=== PATIENT | male | born 1935 | race Caucasian/White ===

== ENCOUNTER 2020-04-13 17:17 | Emergency (ER) | payer MEDICARE, OTHER, SELFPAY ==
--- NOTE | 2020-04-13 17:31 | XR_ITS ---
EXAMINATION: PELVIS AND CHEST CLINICAL INFORMATION: Status post fall COMPARISON: None TECHNIQUE: Single view pelvis, 2 views chest FINDINGS: Pelvis: There is a fracture of the superior pubic ramus on the right. No other definite pelvic fracture is seen. CHEST: The heart is enlarged. There is no evidence of CHF. The aorta is unfolded. The lungs are clear without effusions infiltrates or lung masses. Some mild left basilar atelectasis is seen. No rib fractures are seen. There is a mild compression fracture of a lower thoracic/vertebral body seen on the lateral radiograph. This appears chronic in nature. XR/XR chest 2V IMPRESSION: 1. Fracture of the superior pubic ramus on the right. No other pelvic fractures are seen on plain film radiography. 2. No acute intrathoracic disease. Cardiomegaly and old compression fracture as described above.
--- NOTE | 2020-04-13 17:31 | XR_ITS ---
EXAMINATION: PELVIS AND CHEST CLINICAL INFORMATION: Status post fall COMPARISON: None TECHNIQUE: Single view pelvis, 2 views chest FINDINGS: Pelvis: There is a fracture of the superior pubic ramus on the right. No other definite pelvic fracture is seen. CHEST: The heart is enlarged. There is no evidence of CHF. The aorta is unfolded. The lungs are clear without effusions infiltrates or lung masses. Some mild left basilar atelectasis is seen. No rib fractures are seen. There is a mild compression fracture of a lower thoracic/vertebral body seen on the lateral radiograph. This appears chronic in nature. XR/XR pelvis 1-2V IMPRESSION: 1. Fracture of the superior pubic ramus on the right. No other pelvic fractures are seen on plain film radiography. 2. No acute intrathoracic disease. Cardiomegaly and old compression fracture as described above.
--- NOTE | 2020-04-13 17:31 | ECG_ITS ---
Test Reason : FALL Blood Pressure : / mmHG Vent. Rate : 066 BPM Atrial Rate : 066 BPM P-R Int : 184 ms QRS Dur : 106 ms QT Int : 460 ms P-R-T Axes : 046 -25 060 degrees QTc Int : 482 ms Sinus rhythm with occasional Premature ventricular complexes Prolonged QT Left axis deviation Nonspecific T wave abnormality Abnormal ECG No previous ECGs available Referred By: Sanford Taylor Electronically Signed By:DEISY STEVENS MD
[2020-04-13 17:33] VITALS: BP 123/46; BP 146/84; PULSE 62; PULSE 66; RESP 18; TEMP 36.6; O2SAT 97; O2SAT 99; BMI 26.4
--- NOTE | 2020-04-13 17:36 | ED.FALL ---
HPI - Fall General Chief Complaint: Fall Stated Complaint: mechanical fall Time Seen by Provider: 04/13/20 17:25 Source: patient and EMS Mode of arrival: EMS Limitations: no limitations History of Present Illness HPI Narrative: patient no significant past medical history got up from the couch and suddenly fell down does not remember what made him fall . no loss of consciousness no chest pain no syncope patient landed on his back has a bruise the back and right forearm no head injury no loss of consciousness no chest pain or palpitation also complaining of mild pain in right hip area. Patient does not fall very often complaint: fall Onset (ago): minute(s) ( few) Fall from: standing Fall witnessed: no Place fall occurred: home Loss of consciousness: none Symptoms prior to fall: none Location of injury: back Related Data Home Medications Medication Instructions Recorded Confirmed hydrochlorothiazide 1 cap PO DAILY 04/13/20 04/13/20 latanoprost drp 04/13/20 lisinopril 1 tab PO DAILY 04/13/20 04/13/20 metoprolol tartrate 1 tab PO BID 04/13/20 04/13/20 timolol maleate drp 04/13/20 verapamil 1 tab PO DAILY 04/13/20 04/13/20 Allergies Allergy/AdvReac Type Severity Reaction Status Date / Time No Known Allergies Allergy Verified 04/13/20 17:30 Review of Systems Review of Systems: REVIEW OF SYSTEMS: Pertinent positives and negatives are stated above in the history. GEN: no fevers, chills, fatigue HEENT: no nasal congestion, sore throat, ear pain NEURO: no headache, dizziness, focal weakness PULM: no cough, shortness of breath CV: no chest pain, palpitations, LE edema ABD: no abdominal pain, nausea, vomiting, diarrhea : no dysuria, urgency, frequency SKIN: no rash ROS otherwise negative x 10 PMFSH Past Medical History Medical History (Updated 04/13/20 @ 23:36 by Sanford Taylor MD) Glaucoma Hypertension Social History Social History Alcohol intake: never Smoking Status: Never smoker Use of substances other than those prescribed or required for medical reasons: No Advance Directives: No Advance Directives Information Provided: No Physical Exam Vital Signs: Vital Signs: Vital Signs Temp Pulse Resp BP Pulse Ox 04/13/20 20:36 99.0 F 66 16 115/48 L 95 04/13/20 17:33 98 F 66 18 123/46 L 97 Body Mass Index 26.4 VITAL SIGNS: Reviewed. GENERAL: Well developed, well nourished, in no acute distress. HEAD: Normocephalic/atraumatic, EYES: PERRLA No pallor/icterus noted EARS: Ext canals without abnormality NOSE: Nares patent bilateral OROPHARYNX: Oral mucosa moist no oral lesions NECK: Supple, no adenopathy LUNGS: Normal breath sounds. No adventitious sounds or accessory muscle use CARDIOVASCULAR: Regular rate and rhythm without noted murmurs, no JVD or lower extremity edema. ABDOMEN: Soft, non-tender, non-distended with bowel sounds. No rigidity. No guarding. No palpable masses or hernias noted MUSCULOSKELETAL: mild tenderness on hip flexion at suprapubic area on the right side, deformities, EXTREMITIES: 2+ leg edema L >R SKIN: abrasion at mid back and right forearm, NEUROLOGIC: Alert and oriented x 3. Strength and sensation to light touch were grossly intact Course Course Course Narrative: patient with suprapubic fracture feels increased pain on ambulation with walker unsteady on his feet will plan to place the patient in rehab Reevaluation(s) Reevaluation #1: patient with right pubic rami fracture status post fall unable to ambulate because of pain unsteady on his feet will place him into rehab. Patient signed out to Dr. burt Time: 23:36 MDM - Fall Lab Data Attestation: I reviewed the patient's lab results. Result diagrams: 04/13/20 18:22 04/13/20 18:22 Labs: Lab Results 04/13/20 04/13/20 04/13/20 Range/Units 18:22 18:22 18:22 WBC 11.8 H (4.8-10.8) X10*3/uL RBC 4.38 L (4.60-5.80) X10*6/uL Hgb 13.7 L (14.0-18.0) g/dl Hct 41.4 L (42-52) % MCV 94.5 (80-98) fL MCH 31.3 (27.0-33.0) pg MCHC 33.1 (31.0-36.0) g/dl RDW 13.3 (11.0-16.0) % Plt Count 126 L (160-400) X10*3/uL MPV 11.0 (9.4-12.4) fL Immature Gran % (Auto) 1.4 H (0.0-0.4) % Neut % (Auto) 81.8 H (45-73) % Lymph % (Auto) 7.6 L (20-40) % Bates % (Auto) 8.0 (2-11) % Eos % (Auto) 0.8 (0-4) % Baso % (Auto) 0.4 (0-2) % Lymph # (Auto) 0.9 L (1.2-4.9) X10*3/uL Bates # (Auto) 0.9 (0.1-1.2) X10*3/uL Eos # (Auto) 0.1 (0.0-0.4) X10*3/uL Baso # (Auto) 0.1 (0.0-0.2) X10*3/uL Abs Immat Gran (auto) 0.16 H (0.00-0.03) X10*3/uL Absolute Neuts (auto) 9.7 H (2.0-8.3) X10*3/uL Absolute Nucleated RBC 0.000 (0.0-0.012) X10*3/uL Nucleated RBC % (auto) 0.0 (0.0-0.2) /100WBC Smear Tech's Comments VERIFIED Sodium 143 (135-145) mmol/L Potassium 4.4 (3.3-5.1) mmol/l Chloride 107 (96-108) mmol/L Carbon Dioxide 29 (22-29) mmol/L Anion Gap 11 L (12-20) BUN 19 H (9-16) mg/dL Creatinine 0.98 (0.5-1.4) mg/dL Estim Creat Clear Calc 57.1 Estimated GFR > 60 Random Glucose 105 (60-115) mg/dL Calcium 7.7 L (8.4-10.2) mg/dL Troponin I High Sens 11.9 (<3.5-35.0) ng/L B-Natriuretic Peptide (<100) pg/mL Coronavirus (PCR) (Negative) 04/13/20 04/13/20 Range/Units 18:22 20:12 WBC (4.8-10.8) X10*3/uL RBC (4.60-5.80) X10*6/uL Hgb (14.0-18.0) g/dl Hct (42-52) % MCV (80-98) fL MCH (27.0-33.0) pg MCHC (31.0-36.0) g/dl RDW (11.0-16.0) % Plt Count (160-400) X10*3/uL MPV (9.4-12.4) fL Immature Gran % (Auto) (0.0-0.4) % Neut % (Auto) (45-73) % Lymph % (Auto) (20-40) % Bates % (Auto) (2-11) % Eos % (Auto) (0-4) % Baso % (Auto) (0-2) % Lymph # (Auto) (1.2-4.9) X10*3/uL Bates # (Auto) (0.1-1.2) X10*3/uL Eos # (Auto) (0.0-0.4) X10*3/uL Baso # (Auto) (0.0-0.2) X10*3/uL Abs Immat Gran (auto) (0.00-0.03) X10*3/uL Absolute Neuts (auto) (2.0-8.3) X10*3/uL Absolute Nucleated RBC (0.0-0.012) X10*3/uL Nucleated RBC % (auto) (0.0-0.2) /100WBC Smear Tech's Comments Sodium (135-145) mmol/L Potassium (3.3-5.1) mmol/l Chloride (96-108) mmol/L Carbon Dioxide (22-29) mmol/L Anion Gap (12-20) BUN (9-16) mg/dL Creatinine (0.5-1.4) mg/dL Estim Creat Clear Calc Estimated GFR Random Glucose (60-115) mg/dL Calcium (8.4-10.2) mg/dL Troponin I High Sens (<3.5-35.0) ng/L B-Natriuretic Peptide 856 H (<100) pg/mL Coronavirus (PCR) NEGATIVE (Negative) ECG Data Attestation: I personally reviewed and interpreted this ECG as follows: Interpretation: sinus rhythm with heart rate of 66 occasional PVCs unifocal QT interval slightly prolonged to [address] T wave changes normal axis no acute ischemic Discharge Plan Discharge Clinical Impression: Fracture of pubic ramus Qualifiers: Encounter type: initial encounter Fracture type: closed Laterality: right Qualified Code(s): S32.591A - Other specified fracture of right pubis, initial encounter for closed fracture Patient Disposition: [facility] Prescriptions: No Action latanoprost 0.005 % drops RF: 0 metoprolol tartrate 100 mg tablet 1 tab PO BID RF: 0 verapamil 180 mg tablet extended release 1 tab PO DAILY RF: 0 hydrochlorothiazide 12.5 mg capsule 1 cap PO DAILY RF: 0 timolol maleate 0.5 % drops RF: 0 lisinopril 40 mg tablet 1 tab PO DAILY RF: 0
[2020-04-13 18:29] LABS: Hematocrit 41.4 % (42-52); Hemoglobin 13.7 g/dl (14.0-18.0); MANUAL DIFF FLAG SCAN; Mean Corpuscular HGB Conc 33.1 g/dl (31.0-36.0); PLT CLUMP 1; SCAN SMEAR FLAG 1
[2020-04-13 18:31] LABS: Basophils Absolute Auto 0.1 X10*3/uL (0.0-0.2); Basophils Percent Auto 0.4 % (0-2); Eosinophils Absolute Auto 0.1 X10*3/uL (0.0-0.4); Eosinophils Percent Auto 0.8 % (0-4); Imm Gran Abs Auto 0.16 X10*3/uL (0.00-0.03); Imm Gran Pct Auto 1.4 % (0.0-0.4); Lymphocytes Absolute Auto 0.9 X10*3/uL (1.2-4.9); Lymphocytes Percent Auto 7.6 % (20-40); Mean Corpuscular Hemoglobin 31.3 pg (27.0-33.0); Mean Corpuscular Volume 94.5 fL (80-98); Monocytes Absolute Auto 0.9 X10*3/uL (0.1-1.2); Neutrophils Absolute Auto 9.7 X10*3/uL (2.0-8.3); Neutrophils Percent Auto 81.8 % (45-73); Platelet Count 126 X10*3/uL (160-400); Red Blood Count 4.38 X10*6/uL (4.60-5.80); Red Cell Distribution Width 13.3 % (11.0-16.0); White Blood Count 11.8 X10*3/uL (4.8-10.8)
[2020-04-13 18:46] LABS: SLIDE REVIEW VERIFIED
[2020-04-13 18:51] LABS: Anion Gap 11 (12-20); Blood Urea Nitrogen 19 mg/dL (9-16); Calcium 7.7 mg/dL (8.4-10.2); Carbon Dioxide 29 mmol/L (22-29); Chloride 107 mmol/L (96-108); Creatinine Clr Calc Pharmacy 57.1; Estimated Glomerular Filt Rate > 60; Glucose Random 105 mg/dL (60-115); Potassium 4.4 mmol/l (3.3-5.1); Sodium 143 mmol/L (135-145)
[2020-04-13 18:59] LABS: B Type Natriuretic Peptide 856 pg/mL (<100); Troponin-I High Sensitivity 11.9 ng/L (<3.5-35.0)
[2020-04-13 20:36] VITALS: BP 115/48; PULSE 66; RESP 16; TEMP 37.2; O2SAT 95
[2020-04-13 21:12] LABS: SARS COV2 PCR INHOUSE NEGATIVE (Negative)
--- NOTE | 2020-04-13 21:39 | PC.NURSE ---
PT TRANSFERRED OVER FROM ROOM 4, PT TO SPEAK WITH CASE MANAGEMENT FOR SHORT TERM REHAB. PT NEEDS HIS MEDICATION LIST PUT IN PHARMACY IN THE MORNING AND SIGNED OFF BY MD. MO REPORTS THAT DAUGHTER CAN GET A LIST IN THE MORNING.
[2020-04-14] VITALS (8 sets, daily range): BP systolic 103–139; BP diastolic 44–62; PULSE 66–77; RESP 16–18; TEMP 37.1; O2SAT 91–96
[2020-04-14] MEDS: Acetaminophen 325 MG TABLET 650 MG PO (00:42)
--- NOTE | 2020-04-14 01:56 | PC.NURSE ---
pt able to fall asleep following tylenol.
--- NOTE | 2020-04-14 05:31 | PC.NURSE ---
pt awake and alert, in no distress and denies any hx of copd or emphysema. SPO2 90% on room air, good waveform. skin warm and dry on left hand where spo2 sensor is placed.
--- NOTE | 2020-04-14 05:39 | PC.NURSE ---
changes spo2 sensor, SPO@ still 89% to 94%.
[2020-04-14] MEDS: Furosemide 20 MG TABLET PO (05:55)
--- NOTE | 2020-04-14 06:13 | PC.NURSE ---
pt placed on 1 management engineer oxygen via NC, per request of md. SPO2 improved to 95%
--- NOTE | 2020-04-14 07:55 | PC.NURSE ---
With physical therapy at this time for evaluation
--- NOTE | 2020-04-14 08:32 | XR_ITS ---
EXAMINATION: XR CHEST CLINICAL INFORMATION: Status post fall. COMPARISON: Chest 04/13/2020 TECHNIQUE: Frontal view of the chest was obtained. FINDINGS: The lungs are well-expanded and clear. The heart size and pulmonary vascularity is normal. No gross bony abnormality seen. XR/XR chest 1V IMPRESSION: Unremarkable chest exam. The heart size appears normal on this exam. There is a question of compression fracture, a thoracic spine should be obtained.
--- NOTE | 2020-04-14 08:56 | PC.NURSE ---
Spoke with Daughter Geovanna and updated (with permission of pt) Plan this morning for repeat BNP and remove pt off 02, if not admission after BNP resulted, short term rehab remains plan. Daughter prefers [facility] CM team aware.
[2020-04-14 09:04] LABS: Imm Gran Abs Auto 0.03 X10*3/uL (0.00-0.03); Imm Gran Pct Auto 0.3 % (0.0-0.4); Red Cell Distribution Width 13.2 % (11.0-16.0)
[2020-04-14 09:06] LABS: Basophils Absolute Auto 0.1 X10*3/uL (0.0-0.2); Basophils Percent Auto 0.7 % (0-2); Eosinophils Absolute Auto 0.2 X10*3/uL (0.0-0.4); Eosinophils Percent Auto 1.9 % (0-4); Hemoglobin 13.3 g/dl (14.0-18.0); Lymphocytes Percent Auto 9.7 % (20-40); Mean Corpuscular HGB Conc 34.1 g/dl (31.0-36.0); Mean Corpuscular Hemoglobin 31.2 pg (27.0-33.0); Mean Corpuscular Volume 91.5 fL (80-98); Mean Platelet Volume 11.1 fL (9.4-12.4); Monocytes Absolute Auto 1.1 X10*3/uL (0.1-1.2); Monocytes Percent Auto 10.5 % (2-11); Neutrophils Absolute Auto 8.2 X10*3/uL (2.0-8.3); Neutrophils Percent Auto 76.9 % (45-73); Platelet Count 110 X10*3/uL (160-400); Red Blood Count 4.26 X10*6/uL (4.60-5.80); White Blood Count 10.6 X10*3/uL (4.8-10.8)
[2020-04-14 09:08] LABS: MANUAL DIFF FLAG NO
[2020-04-14 09:28] LABS: Anion Gap 12 (12-20); Blood Urea Nitrogen 13 mg/dL (9-16); Calcium 7.6 mg/dL (8.4-10.2); Carbon Dioxide 25 mmol/L (22-29); Chloride 106 mmol/L (96-108); Estimated Glomerular Filt Rate > 60; Glucose Random 131 mg/dL (60-115); Potassium 3.7 mmol/l (3.3-5.1); Sodium 139 mmol/L (135-145)
[2020-04-14 09:30] LABS: B Type Natriuretic Peptide 1528 pg/mL (<100)
[2020-04-14] MEDS: Docusate Sodium 100 MG/10 ML LIQUID 50 MG PO (09:58)
[2020-04-14] MEDS: lisinopriL 40 MG TABLET PO (09:59)
[2020-04-14] MEDS: Metoprolol Tartrate 100 MG TABLET PO (09:59)
[2020-04-14] MEDS: VerapamiL HCL SR 180 MG TABLET.ER PO (10:00)
[2020-04-14] MEDS: hydroCHLOROthiazide 12.5 MG TABLET PO (10:00)
--- NOTE | 2020-04-14 10:03 | MHC.CM.ED ---
Received case management consult overnight. Patient came to ER due to fall. Found to have pubic ramus fracture. Physical therapy eval completed. Short term rehab is recommended. Received notification from [facility] that daughter is requesting referral to [facility]. Referral made via [employer]. [facility] to offer. Spoke with patient's daughter, Geovanna via telephone at [phone]. Geovanna states she's an agency nurse that has worked in most of the facilities in the area. She doesn't trust any facility but [facility]. She wants to know when they will have a bed available and if it's later in the week, can patient come home and then go. T/W is reaching out to [facility] liaison to answer these questions. Continue to monitor for d/c needs.
--- NOTE | 2020-04-14 11:06 | MHC.CM.ED ---
Spoke with Vivian at [facility]. They are able to offer a bed to patient today. They will need a 2nd negative covid test. Rapid covid ordered. Spoke with patient's daughter, Geovanna. Explained patient will be leaving for [facility] at 2pm. [facility] booked. [facility]. Patient, Sarah Austin DESIGN ENGINEERING MANAGER and Lauren RN aware. Continue to monitor for d/c needs.
--- NOTE | 2020-04-14 11:27 | PC.NURSE ---
verified with ileana that the patient already got am dose of colace as well as hydrochlorothiazide even though the MAR looks as if it wasnt given.
--- NOTE | 2020-04-14 11:34 | PC.NURSE ---
patient a&ox3, repeat covid swab performed, patient spoke with daughter on phone as well as , patient requesting eye drops will notify provider
[2020-04-14 12:43] LABS: SARS COV2 PCR INHOUSE NEGATIVE (Negative)
--- NOTE | 2020-04-14 13:42 | PC.NURSE ---
report called to klaus stewart
--- NOTE | 2020-04-14 13:51 | PC.NURSE ---
[facility] worker (saige- contact info in a note a few days ago by this nurse) just called asking for update on patient and if there has been any word on a cbat bed, dcf worker stated she will be in contact with social work to see if she still meets the level of care needed.
[2020-04-14] MEDS: Dorzolamide/Timolo 2.23%/0.68% 10 ML DRBTL 1 DROP EYE-BOTH (13:56)
--- NOTE | 2020-04-14 13:58 | PC.NURSE ---
patient refusing latanoprost at this time
== END 2020-04-14 14:17 | disposition skilled nursing facility (03) ==
PROVIDERS: Nurse Practitioner Family; Student in an Organized Health Care Education/Training Program; Emergency Provider Internal Medicine; PCP Internal Medicine
DX: S32.591A Other specified fracture of right pubis, initial encounter for closed fracture (principal); M25.551 Pain in right hip; M54.5 Low back pain; M79.601 Pain in right arm; W01.0XXA Fall on same level from slipping, tripping and stumbling without subsequent striking against object, initial encounter; Y93.01 Activity, walking, marching and hiking; Y92.009 Unspecified place in unspecified non-institutional (private) residence as the place of occurrence of the external cause; Y99.9 Unspecified external cause status; Z20.828 Contact with and (suspected) exposure to other viral communicable diseases; Z79.899 Other long term (current) drug therapy
CPT/HCPCS: 36415; 71045; 71046; 72170; 80048; 82550; 83880; 84484; 85025; 93005; 97161; 99284; 99285; U0003

== ENCOUNTER 2022-02-05 19:23 | Emergency (ER) | payer MEDICARE, OTHER, SELFPAY ==
--- NOTE | ~2022-02-05 | XR_ITS ---
EXAMINATION: XR CHEST CLINICAL INFORMATION: Covid positive COMPARISON: Chest x-ray 04/14/2020 TECHNIQUE: Frontal view of the chest was obtained. FINDINGS: Minimal linear streaky bibasilar opacities likely mild subsegmental atelectasis. No airspace consolidation. No pleural effusion or pneumothorax. Normal cardiomediastinal silhouette and pulmonary vascularity. No evidence of pulmonary edema. No acute osseous injury. XR/XR chest 1V IMPRESSION: 1. Mild linear basilar opacities, likely mild subsegmental atelectasis. No definite airspace consolidation or effusions.
--- NOTE | ~2022-02-05 | CT_ITS ---
EXAMINATION: NONCONTRAST HEAD CT NONCONTRAST CERVICAL SPINE CT INDICATION INFORMATION: Fall with head and neck pain COMPARISON: None TECHNIQUE: Separate noncontrast CT examinations of the head and cervical spine were performed. Coronal and sagittal images were created for each examination at the technologist workstation. This CT examination was performed using dose optimization techniques as appropriate, variously including the following: *Automated exposure control *Adjustment of mA and/or kV according to patient size (this includes techniques or standardized protocols for targeted exams where dose is matched to indication/reason for exam; i.e. extremities or head) *Use of iterative reconstruction technique DLP: 1502 mGy-cm FINDINGS: HEAD: No intra or extra-axial fluid collection, hemorrhage, or mass. No ventriculomegaly. No midline shift or herniation. Basal cisterns are patent. Ingram-white matter differentiation is maintained. No territorial encephalomalacia. Proportional prominence of the ventricles and sulcal spaces is consistent with moderate volume loss. Patchy periventricular and deep white matter hypoattenuation is consistent with mild small vessel ischemic changes. No calvarial fracture or soft tissue abnormality. Mild mucosal thickening in a few ethmoid air cells. Mastoid air cells normally aerated. CERVICAL SPINE: Alignment: Straightening of the normal cervical lordosis. Trace grade 1 anterolisthesis at C7-T1. No additional subluxation. Vertebra: No acute fracture. No prevertebral soft tissue swelling. Degenerative disc disease: Advanced multilevel cervical spondylosis at C3-C4, C4-C5, C5-C6, and C6-C7 with pronounced disc height loss, endplate sclerosis, and endplate proliferative change. Multilevel facet arthrosis with left-sided predominance. Other findings: No cervical lymphadenopathy or soft tissue mass. Visualized salivary glands and thyroid gland grossly unremarkable. Visualized lung apices clear. CT/CT cervical spine wo con IMPRESSION: 1. No intracranial hemorrhage or calvarial fracture. 2. No traumatic subluxation or acute cervical spine fracture.
[2022-02-05 19:36] VITALS: BP 106/74; PULSE 68; O2SAT 94
[2022-02-05 19:40] VITALS: BP 92/41; PULSE 63; RESP 18; TEMP 37.1; O2SAT 95; BMI 21.9
[2022-02-05 20:02] VITALS: BP 89/41
[2022-02-05 20:03] VITALS: BP 99/48
--- NOTE | 2022-02-05 20:03 | PC.NURSE ---
left lower leg ankle and pedal pitting edema. pt states he is given his meds but has no idea what for or what they are. poor historian. soft bp 89/41 left arm 99/48 right arm.
[2022-02-05 20:13] LABS: COVID-19 Test Positive (Negative)
[2022-02-05] MEDS: 0.9 % Sodium Chloride 1,000 ML 999 ML IVCONT (20:22)
[2022-02-05 20:27] LABS: MANUAL DIFF FLAG NO
[2022-02-05 20:30] LABS: Basophils Percent Auto 0.4 % (0-2); Eosinophils Absolute Auto 0.1 X10*3/uL (0.0-0.4); Eosinophils Percent Auto 1.4 % (0-4); Hematocrit 41.8 % (42.0-52.0); Imm Gran Abs Auto 0.02 X10*3/uL (0.00-0.03); Imm Gran Pct Auto 0.4 % (0.0-0.4); Lymphocytes Absolute Auto 1.1 X10*3/uL (1.2-4.9); Lymphocytes Percent Auto 21.7 % (20-40); Mean Corpuscular HGB Conc 33.5 g/dl (31.0-36.0); Mean Corpuscular Hemoglobin 29.3 pg (27.0-33.0); Mean Corpuscular Volume 87.4 fL (80.0-98.0); Mean Platelet Volume 11.3 fL (9.4-12.4); Monocytes Absolute Auto 0.9 X10*3/uL (0.1-1.2); Monocytes Percent Auto 18.3 % (2-11); Neutrophils Absolute Auto 2.9 x10*3/uL (2.0-8.3); Neutrophils Percent Auto 57.8 % (45-73); Platelet Count 101 X10*3/uL (160-400); Red Blood Count 4.78 X10*6/uL (4.60-5.80); Red Cell Distribution Width 13.3 % (11.0-16.0)
[2022-02-05 20:37] LABS: Lactic Acid 1.3 mmol/L (0.5-2.0)
[2022-02-05 20:42] LABS: Alanine Aminotransferase 27 U/L (0-40); Albumin Level 3.5 g/dL (3.5-5.0); Alkaline Phosphatase 59 U/L (39-117); Anion Gap 16 (12-20); Aspartate Amino Transferase 45 U/L (5-37); Bilirubin Direct 0.4 mg/dL (0.0-0.5); Bilirubin Total 1.1 mg/dL (0.0-1.0); Blood Urea Nitrogen 41 mg/dL (9-16); Calcium 8.3 mg/dL (8.4-10.2); Carbon Dioxide 30 mmol/L (22-29); Chloride 101 mmol/L (96-108); Creatinine Clr Calc Pharmacy 36.1; Estimated Glomerular Filt Rate 46; Ethanol < 10 mg/dL; Glucose Random 105 mg/dL (60-115); Magnesium 2.1 mg/dL (1.6-2.6); Potassium 4.2 mmol/L (3.3-5.1); Sodium 143 mmol/L (135-145); Total Protein 6.3 g/dL (6.5-8.0)
--- NOTE | 2022-02-05 20:42 | PHA.MEDREC ---
Pharmacy Consult ? Medication Reconciliation Pharmacy has completed the medication reconciliation. Patient has altered mental status. [facility], however, at this time they are closed. Med rec done by using [employer] [facility].
--- NOTE | 2022-02-05 21:16 | MHC.CM.ED ---
Addendum entered by Vicenta Dinh 02/05/22 21:37: Correct telephone number for Geovanna Maria ([phone]). Original Note: Medical work-up pending. Dr. Newberry discussed patient and his (who is in ED also) with CM. Pt was diagnosed with Covid on 01/31. Pt was found today with AMS and naked in home. Pt appears to have fallen, as there are bruises on his face and he has scleral total reddness noted. Pt is still being medically worked up. Will either be admitted or will be a CM hold, as he cannot go home. There is no one to care for his. CM spoke with Geovanna Maria (daughter/HCP/POA) ([phone]). Pt lives with his . Pt son in law , Silviano Antoine cares for both the patient and his during the day and the family private pays for 2 [employer] in the evenings and on weekends. Pt uses a walker. Pt is normally A&Ox4. Pt has been having increased difficulties with ADL's and Geovanna tells CM that her may need to start helping him to shower. Daughter aware that if not admitted, pt may need STR, but that may be problematic, as pt is Covid positive and many facilities need patients to be covid recovered before admission. Geovanna aware that her father will not be going home, as he has no one to care for him. Son in law, Silviano Antoine also has covid, as does patient's grandson. CM will follow for d/c planning.
--- NOTE | 2022-02-05 21:17 | ED.GENADULT ---
HPI - General Adult General Chief complaint: General Medical Stated complaint: fall covid + and eye problem Time Seen by Provider: 02/05/22 19:40 Source: EMS Mode of arrival: EMS Limitations: altered mental status History of Present Illness HPI narrative: Patient was in the emergency room via EMS for altered mental status. Patient tested positive for COVID-19 5 days ago. Patient is very confused and is unable to give any significant history. I spoke with the patient's daughter, states that the patient has been gradually become more confused since the last 5 days. Patient does not have history of dementia. This afternoon, when patient's daughter went to provide him with food and medications, the patient was running around the house naked and screaming. According to the patient's daughter, this is not a normal behavior for the patient. Patient denies any symptoms. Besides being confused and having COVID, the patient has a new subconjunctival hemorrhage. Patient states that he does note if it fell, denies any pain. The daughter states that this morning the patient's eye was within normal limits, when they found him this afternoon, he had the hemorrhage in his eye. Related Data Home Medications Medication Instructions Recorded Confirmed hydrochlorothiazide 12.5 mg capsule 1 cap PO DAILY 04/13/20 02/05/22 latanoprost 0.005 % eye drops 1 drp ophthalmic (eye) BEDTIME 04/13/20 02/05/22 lisinopril 40 mg tablet 1 tab PO DAILY 04/13/20 02/05/22 metoprolol tartrate 100 mg tablet 1 tab PO BID 04/13/20 02/05/22 verapamil 180 mg tablet,extended 1 tab PO DAILY 04/13/20 02/05/22 release brimonidine 0.2 % eye drops 1 drp ophthalmic (eye) TID 04/14/20 02/05/22 dorzolamide 22.3 mg-timolol 6.8 1 drp ophthalmic (eye) BID 04/14/20 02/05/22 mg/mL eye drops (Cosopt) nirmatrelvir 300 mg (150 mg 3 tab PO DAILY 02/05/22 02/05/22 x2)-ritonavir 100 mg tablet,dose pack(EUA) (Paxlovid) Previous Rx's Medication Instructions Recorded furosemide 20 mg tablet 20 mg PO QAM #10 tabs 04/14/20 Allergies Allergy/AdvReac Type Severity Reaction Status Date / Time No Known Allergies Allergy Verified 04/13/20 17:30 Review of Systems Review of Systems: Yes Unobtainable due to mental condition [facility] Past Medical History Medical History (Updated 02/05/22 @ 22:48 by Leonora Newberry MD) Aortic stenosis CHF (congestive heart failure) Glaucoma Hypertension Social History Social History Alcohol intake: never Advance Directives: No Advance Directives Information Provided: No Physical Exam ED Vital Signs: Vital Signs - 24 hr 02/05/22 19:40 02/05/22 20:02 02/05/22 20:03 Temperature 98.8 F Pulse Rate 63 Respiratory Rate 18 Blood Pressure 92/41 L 89/41 L 99/48 L Pulse Oximetry 95 Oxygen Delivery Method Room Air BMI result Body Mass Index 21.9 Const Other: Appearance: Alert. Oriented X2. No acute distress. Eyes: After within normal limits, the right pupil is oval, unresponsive to light, there is a significant subconjunctival hemorrhage, the globe is not ruptured, there is ecchymosis on the inferior aspect of the orbit. Seems that patient can move his eyes, not complaining of pain, patient has trouble following instructions due to altered mental status. Visual acuity test was attempted, patient kept saying I can not see anything, patient unable to follow directions. However, when light was being shined into his eyes, patient states that he was able to see the light bilaterally. Eye pressure bilaterally between 18 and 23 mmHg ENT: Pharynx normal. Neck: Normal inspection. Neck supple. No lymph nodes noted. No crepitus CVS: Normal heart rate and rhythm. Pulses normal. Normal S1 and S2 Respiratory: No respiratory distress. Breath sounds normal. No Wheezing. No rales Abdomen: Soft and nontender. No rigidity. No distention. Skin: Skin warm and dry. Ecchymosis in the face Extremities: +3 pitting edema bilaterally, more on the left leg. No pain to palpation in the calf, no erythema. No Lacerations. No Rash Neuro: Oriented X 2. No motor deficit. No sensory deficit. Moving all extremities. No slurred speech. CN 2 through 12 grossly intact Psych: calm, cooperative, normal affect Course Course Course Narrative: White blood cell count within normal limits, coagulation tests normal, very mild HANNA, normal creatinine is 1.4, patient is at 1.45 and is receiving fluids that were started by EMS Patient tested positive for COVID-19 I discussed the patient with Dr. Muse, topical erythromycin was recommended. Head CT is pending. 22:47, head CT does not show any acute abnormalities. Urinalysis is negative for UTI. Case management has been made aware. Patient will need a physical therapy evaluation tomorrow, erythromycin eye ointment to be continued . Patient will need to follow up with Dr. Muse Physician observation started at 23:16 Sign-out given to Medical Decision Making Lab Data Result diagrams: 02/05/22 20:19 02/05/22 20:19 Labs: Lab Results 02/05/22 02/05/22 02/05/22 Range/Units 19:55 20:19 20:19 WBC 5.0 (4.8-10.8) X10*3/uL RBC 4.78 (4.60-5.80) X10*6/uL Hgb 14.0 (14.0-18.0) g/dl Hct 41.8 L (42.0-52.0) % MCV 87.4 (80.0-98.0) fL MCH 29.3 (27.0-33.0) pg MCHC 33.5 (31.0-36.0) g/dl RDW 13.3 (11.0-16.0) % Plt Count 101 L (160-400) X10*3/uL MPV 11.3 (9.4-12.4) fL Immature Gran % (Auto) 0.4 (0.0-0.4) % Neut % (Auto) 57.8 (45-73) % Lymph % (Auto) 21.7 (20-40) % [place] % (Auto) 18.3 H (2-11) % Eos % (Auto) 1.4 (0-4) % Baso % (Auto) 0.4 (0-2) % Lymph # (Auto) 1.1 L (1.2-4.9) X10*3/uL [place] # (Auto) 0.9 (0.1-1.2) X10*3/uL Eos # (Auto) 0.1 (0.0-0.4) X10*3/uL Baso # (Auto) 0.0 (0.0-0.2) X10*3/uL Abs Immat Gran (auto) 0.02 (0.00-0.03) X10*3/uL Absolute Neuts (auto) 2.9 (2.0-8.3) x10*3/uL Absolute Nucleated RBC 0.000 (0.0-0.012) X10*3/uL Nucleated RBC % (auto) 0.0 (0.0-0.2) /100WBC PT (10.0-13.1) SEC INR (0.9-1.1) APTT (26.0-36.4) SEC Sodium 143 (135-145) mmol/L Potassium 4.2 (3.3-5.1) mmol/L Chloride 101 (96-108) mmol/L Carbon Dioxide 30 H (22-29) mmol/L Anion Gap 16 (12-20) BUN 41 H (9-16) mg/dL Creatinine 1.45 H (0.5-1.4) mg/dL Estim Creat Clear Calc 36.1 Estimated GFR 46 Random Glucose 105 (60-115) mg/dL Lactic Acid (0.5-2.0) mmol/L Calcium 8.3 L D (8.4-10.2) mg/dL Magnesium 2.1 (1.6-2.6) mg/dL Total Bilirubin 1.1 H (0.0-1.0) mg/dL Direct Bilirubin 0.4 (0.0-0.5) mg/dL AST 45 H (5-37) U/L ALT 27 (0-40) U/L Alkaline Phosphatase 59 (39-117) U/L Total Protein 6.3 L (6.5-8.0) g/dL Albumin 3.5 (3.5-5.0) g/dL Urine Color Urine Appearance Urine pH (5.0-8.0) Ur Specific [place] (1.005-1.025) Urine Protein (Neg-Trace) mg/dL Urine Glucose (UA) (Negative) mg/dL Urine Ketones (Negative) mg/dL Urine Blood (Negative) Urine Nitrite (Negative) Ur Leukocyte Esterase (Negative) Ethyl Alcohol < 10 mg/dL COVID-19 (CECILE) Positive A (Negative) COVID-19 Clin Com See Note 02/05/22 02/05/22 02/05/22 Range/Units 20:19 21:25 21:52 WBC (4.8-10.8) X10*3/uL RBC (4.60-5.80) X10*6/uL Hgb (14.0-18.0) g/dl Hct (42.0-52.0) % MCV (80.0-98.0) fL MCH (27.0-33.0) pg MCHC (31.0-36.0) g/dl RDW (11.0-16.0) % Plt Count (160-400) X10*3/uL MPV (9.4-12.4) fL Immature Gran % (Auto) (0.0-0.4) % Neut % (Auto) (45-73) % Lymph % (Auto) (20-40) % [place] % (Auto) (2-11) % Eos % (Auto) (0-4) % Baso % (Auto) (0-2) % Lymph # (Auto) (1.2-4.9) X10*3/uL [place] # (Auto) (0.1-1.2) X10*3/uL Eos # (Auto) (0.0-0.4) X10*3/uL Baso # (Auto) (0.0-0.2) X10*3/uL Abs Immat Gran (auto) (0.00-0.03) X10*3/uL Absolute Neuts (auto) (2.0-8.3) x10*3/uL Absolute Nucleated RBC (0.0-0.012) X10*3/uL Nucleated RBC % (auto) (0.0-0.2) /100WBC PT 12.1 (10.0-13.1) SEC INR 1.1 (0.9-1.1) APTT 29.1 (26.0-36.4) SEC Sodium (135-145) mmol/L Potassium (3.3-5.1) mmol/L Chloride (96-108) mmol/L Carbon Dioxide (22-29) mmol/L Anion Gap (12-20) BUN (9-16) mg/dL Creatinine (0.5-1.4) mg/dL Estim Creat Clear Calc Estimated GFR Random Glucose (60-115) mg/dL Lactic Acid 1.3 (0.5-2.0) mmol/L Calcium (8.4-10.2) mg/dL Magnesium (1.6-2.6) mg/dL Total Bilirubin (0.0-1.0) mg/dL Direct Bilirubin (0.0-0.5) mg/dL AST (5-37) U/L ALT (0-40) U/L Alkaline Phosphatase (39-117) U/L Total Protein (6.5-8.0) g/dL Albumin (3.5-5.0) g/dL Urine Color Yellow Urine Appearance Clear Urine pH 5.5 (5.0-8.0) Ur Specific [place] 1.015 (1.005-1.025) Urine Protein Negative (Neg-Trace) mg/dL Urine Glucose (UA) Negative (Negative) mg/dL Urine Ketones Negative (Negative) mg/dL Urine Blood Negative (Negative) Urine Nitrite Negative (Negative) Ur Leukocyte Esterase Negative (Negative) Ethyl Alcohol mg/dL COVID-19 (CECILE) (Negative) COVID-19 Clin Com Imaging Data Chest x-ray: Radiologist's impression: FINDINGS: Minimal linear streaky bibasilar opacities likely mild subsegmental atelectasis. No airspace consolidation. No pleural effusion or pneumothorax. Normal cardiomediastinal silhouette and pulmonary vascularity. No evidence of pulmonary edema. No acute osseous injury. XR/XR chest 1V IMPRESSION: ? 1. Mild linear basilar opacities, likely mild subsegmental atelectasis. No definite airspace consolidation or effusions. ? Head and cervical spine CT: Radiologist's impression: FINDINGS: HEAD: No intra or extra-axial fluid collection, hemorrhage, or mass. No ventriculomegaly. No midline shift or herniation. Basal cisterns are patent. Ingram-white matter differentiation is maintained. No territorial encephalomalacia. ?Proportional prominence of the ventricles and sulcal spaces is consistent with moderate volume loss. Patchy periventricular and deep white matter hypoattenuation is consistent with mild small vessel ischemic changes. No calvarial fracture or soft tissue abnormality. Mild mucosal thickening in a few ethmoid air cells. Mastoid air cells normally aerated. CERVICAL SPINE: Alignment: Straightening of the normal cervical lordosis. Trace grade 1 anterolisthesis at C7-T1. No additional subluxation. Vertebra: No acute fracture. No prevertebral soft tissue swelling. Degenerative disc disease: Advanced multilevel cervical spondylosis at C3-C4, C4-C5, C5-C6, and C6-C7 with pronounced disc height loss, endplate sclerosis, and endplate proliferative change. Multilevel facet arthrosis with left-sided predominance. Other findings: No cervical lymphadenopathy or soft tissue mass. Visualized salivary glands and thyroid gland grossly unremarkable. Visualized lung apices clear. CT/CT cervical spine wo con IMPRESSION: ? 1. No intracranial hemorrhage or calvarial fracture. 2. No traumatic subluxation or acute cervical spine fracture. Discharge Plan Discharge Clinical Impression: COVID-19, Altered mental status, Subconjunctival hemorrhage of right eye Patient Disposition: Still a Patient Prescriptions: No [facility] latanoprost 0.005 % drops 1 drp ophthalmic (eye) BEDTIME Rx Instructions: one drop each eye metoprolol tartrate 100 mg tablet 1 tab PO BID verapamil 180 mg tablet extended release 1 tab PO DAILY hydrochlorothiazide 12.5 mg capsule 1 cap PO DAILY lisinopril 40 mg tablet 1 tab PO DAILY furosemide 20 mg tablet 20 mg PO QAM Qty: 10 0RF dorzolamide-timolol [Cosopt] 22.3-6.8 mg/mL Drops 1 drp OPHTHALMIC (EYE) BID brimonidine 0.2 % Drops 1 drp OPHTHALMIC (EYE) TID Paxlovid (EUA) 300 mg (150 mg x 2)-100 mg tablets,dose pack 3 tab PO DAILY
[2022-02-05 21:41] LABS: INTERNATIONAL NORM RATIO 1.1 (0.9-1.1); Prothrombin Time 12.1 SEC (10.0-13.1)
[2022-02-05 21:43] LABS: Partial Thromboplastin Time 29.1 SEC (26.0-36.4)
[2022-02-05 22:58] LABS: Appearance Urine Clear; Color Urine Yellow; Glucose Urine UA Negative (Negative); Leukocyte Esterase Urine Negative (Negative); Nitrite Urine Negative (Negative); PH 5.5 (5.0-8.0); Specific Gravity - Urine 1.015 (1.005-1.025); Urine Blood Negative (Negative); Urine Ketones Negative (Negative); Urine Protein Negative (Neg-Trace)
--- NOTE | 2022-02-05 22:59 | PC.NURSE ---
PATIENT WAS INC OF URINE ,CARE GIVEN LINEN CHANGE .
[2022-02-05] MEDS: Erythromycin Base 0.5% Oph Oin 1 GM TUBE 1 CM EYE-RIGHT (23:19)
[2022-02-05 23:31] LABS: Amphetamine Screen Urine Not Detected (Not Detect); Barbiturates, Urine Not Detected (Not Detect); Benzodiazepines Screen Urine Not Detected (Not Detect); Cannabinoid Screen Urine Not Detected (Not Detect); Cocaine Screen Urine Not Detected (Not Detect); Fentanyl, urine Not Detected (Not Detect); Opiate Screen Urine Not Detected (Not Detect); Phencyclidine Screen Urine Not Detected (Not Detect)
[2022-02-06 05:57] VITALS: BP 101/69; PULSE 76; RESP 19; TEMP 36.8; O2SAT 100
--- NOTE | 2022-02-06 10:20 | PC.NURSE ---
Called pt's daughter Geovanna to request that she bring Paxleslied to the ED per the pharmacy. Geovanna was at work and said she would call back as soon as she could.
[2022-02-06] MEDS: Erythromycin Base 0.5% Oph Oin 1 GM TUBE 1 CM EYE-RIGHT (10:48)
[2022-02-06] MEDS: Furosemide 20 MG TABLET PO (10:48)
[2022-02-06 10:49] VITALS: BP 96/36; PULSE 62; TEMP 36.6; O2SAT 96
--- NOTE | 2022-02-06 11:38 | PC.NURSE ---
Assumed care of pt at 0700. Pt states feeling very tired. Meds given per MAR. Pt denies pain.
--- NOTE | 2022-02-06 12:51 | MHC.CM.ED ---
Patient remains in ER. At 09:00, spoke with patient's daughter/HCP, Geovanna via telephone at [phone]. Geovanna aware physical therapy eval pending. Geovanna would only want patient to go [facility]. T/W explained patient and spouse might be difficult to place due to being Covid positive. Geovanna does not want patient and spouse placed at any other facility and would take patient and spouse home. Physical therapy eval is completed at this time. Short term rehab is recommended. [facility] are able to accept Covid positive patients at this time. Geovanna requesting referral to [facility] [address]. T/W explained [facility] not accepting positive Covid patients. Geovanna became upset at this time and stated have some compassion for my situation. T/W explained patient and spouse do not qualify for inpatient admission. Also explained T/W would happily send more referrals out but Geovanna stated she only wanted referrals to [facility] and [facility]. Geovanna concerned about patient's eye hematoma. Tatiana WALL aware. Patient will need antibiotic eye drops and follow up with ophthalmology when Covid recovered. Tatiana will reach out to Geovanna via telephone. [facility] will be booked for 330pm. Tatum BURGER and Tatiana WALL aware. Continue to monitor for d/c needs.
[2022-02-06 13:37] VITALS: BP 93/41; PULSE 64; RESP 16; O2SAT 96
== END 2022-02-06 16:08 | disposition home or self-care (01) ==
PROVIDERS: Emergency Provider Emergency Medicine
DX: U07.1 COVID-19 (principal); H11.31 Conjunctival hemorrhage, right eye; R41.82 Altered mental status, unspecified; M54.2 Cervicalgia; R07.89 Other chest pain; Z79.899 Other long term (current) drug therapy
CPT/HCPCS: 36415; 70450; 71045; 72125; 80048; 80076; 80307; 81003; 82077; 83605; 83735; 85025; 85610; 85730; 87040; 87635; 97162; 99284; 99285

== ENCOUNTER 2022-03-15 14:02 | Outpatient (REF) | payer MEDICARE, OTHER, SELFPAY ==
[2022-03-15 15:51] LABS: Anion Gap 15 (12-20); Blood Urea Nitrogen 68 mg/dL (9-16); Calcium 8.3 mg/dL (8.4-10.2); Carbon Dioxide 28 mmol/L (22-29); Chloride 100 mmol/L (96-108); Estimated Glomerular Filt Rate 32; Glucose Random 90 mg/dL (60-115); Potassium 4.9 mmol/L (3.3-5.1); Sodium 138 mmol/L (135-145)
== END 2022-03-15 14:03 | disposition home or self-care (01) ==
LOC: HO.LNP 14:02
PROVIDERS: Visit Provider Physician Assistant Medical
DX: I11.0 Hypertensive heart disease with heart failure (principal); I50.9 Heart failure, unspecified
CPT/HCPCS: 80048